=== PATIENT | female | born 1950 | race Caucasian/White ===

== ENCOUNTER 2017-10-13 08:34 | Inpatient (IN) | payer MEDICARE, BC ==
[~2017-10-13] VITALS: Ht 165.1 cm; Wt 114.5 kg
[~2017-10-13 08:34] MED LIST: ASPI-496 PO; ASPI-691 PO; CALC-47 PO; CASCARA SAGRADA PO; CHRO1TAB6 PO; CINN500C2 PO; DOCU100T6 PO; EZET1TAB41 PO; HYDR-3241 PO; HYDR2TAB29 PO; IBUP-1484 PO; IBUP200C8 PO; INUL1TAB PO; LEVO100T5 PO; LORA10TA45 PO; MORP15TA3 PO; MULT-717 PO; NAPR220T77 PO; OMEGA PO; OMEGA Q PLUS PO; OMEGA SLIM PO; OXYC10TA6 PO; PHEN30CA3 PO; POTASSIUM GLUCONATE PO; SPIR100T4 PO; SUPER COLLAGEN PO; SUPER GREENS PO; TEMA15CA PO; TRIA1TAB3 PO; VITA150T PO; [UNRECOGNIZED DRUG - OTHER] PO; [UNRECOGNIZED DRUG - OTHER] PO; [UNRECOGNIZED DRUG - OTHER] PO; [UNRECOGNIZED DRUG - OTHER] PO; gabapentin PO
[2017-10-13] MEDS ORDERED: LACTATED RINGERS 1,000 ML IV SCH ×2 (09:01→09:30)
[2017-10-13] MEDS ORDERED: LIDOCAINE-MPF 1%, 5ML ONE (09:03)
[2017-10-13 09:30] VITALS: BP 160/107
[2017-10-13] MEDS ORDERED: LIDOCAINE-MPF 1%, 2ML INFIL ONE (09:30)
[2017-10-13] MEDS ORDERED: SCOPOLAMINE PATCH, 1.5MG PATCH.TD72 TD ONE (10:13)
[2017-10-13] MEDS ORDERED: MIDAZOLAM 1 MG/ML, 2ML ONE ×2 (10:38→13:53)
[2017-10-13] MEDS ORDERED: FENTANYL PF 250 MCG/5ML ONE (10:38)
[2017-10-13] MEDS ORDERED: PROPOFOL 10 MG/ML, 20ML ONE (11:03)
[2017-10-13] MEDS ORDERED: LABETALOL 5MG/ML, 20ML ONE (11:03)
[2017-10-13] MEDS ORDERED: ONDANSETRON 2MG/ML, 2ML ONE (11:03)
[2017-10-13] MEDS ORDERED: DEXAMETHASONE 4 MG/ML, 1ML ONE (11:03)
[2017-10-13] MEDS ORDERED: CLINDAMYCIN 150 MG/ML, 6ML ONE (11:16)
[2017-10-13] MEDS ORDERED: HYDROmorphone 1 MG/ML, 1ML IV PRN (12:30)
[2017-10-13] MEDS ORDERED: hydrALAzine 20 MG/ML, 1ML IV PRN (12:30)
[2017-10-13] MEDS ORDERED: PROMETHAZINE 25 MG/ML, 1ML IV PRN (12:30)
[2017-10-13] MEDS ORDERED: OXYcodone 5 MG/5 ML ORAL.SOL UDC PO PRN (12:30)
[2017-10-13] MEDS ORDERED: ONDANSETRON ODT 8 MG PO PRN (12:30)
[2017-10-13] MEDS ORDERED: ALBUTEROL SULFATE 2.5 MG/3 ML NPPB PRN (12:30)
[2017-10-13] MEDS ORDERED: MEPERIDINE/PF 25MG/0.5ML IVPush PRN (12:30)
[2017-10-13] MEDS ORDERED: MORPHINE SULFATE 4 MG/ML, 1ML IVPush PRN (12:30)
[2017-10-13] MEDS ORDERED: ACETAMINOPHEN 325 MG TABLET PO PRN (12:30)
[2017-10-13] MEDS ORDERED: LABETALOL 5MG/ML, 20ML IV PRN (12:30)
[2017-10-13] MEDS ORDERED: FENTANYL PF 100 MCG/2ML ONE (13:20)
[2017-10-13] MEDS ORDERED: OXYcodone 5 MG/5 ML ORAL.SOL UDC ONE (13:20)
[2017-10-13] MEDS: FENTANYL PF 100 MCG/2ML IV PRN ×4 (13:25→13:50)
[2017-10-13] MEDS: MIDAZOLAM 1 MG/ML, 2ML IV PRN ×3 (13:55→15:20)
[2017-10-13] MEDS ORDERED: KETOROLAC 30 MG/1 ML ONE (13:56)
[2017-10-13] MEDS ORDERED: KETOROLAC 30 MG/1 ML IV PRN (14:00)
[2017-10-13] MEDS ORDERED: ROPIvacaine/PF 0.2%, 100ML 550 ML in BAG 1 EACH INJ ONE (17:00)
[2017-10-13] MEDS ORDERED: morphine SULFATE 10 MG/ML, 1ML IV PRN (18:00)
[2017-10-13] MEDS ORDERED: ONDANSETRON 2MG/ML, 2ML IV PRN (18:00)
[2017-10-13] MEDS ORDERED: LORATADINE 10 MG TABLET PO PRN (18:00)
[2017-10-13] MEDS: OXYcodone/APAP 5/325MG TABLET PO PRN (18:30)
[2017-10-13 20:00] VITALS: BP 118/61
[2017-10-13] MEDS: SODIUM CHLORIDE FLUSH 10ML SYR IVF SCH (21:00)
[2017-10-13] MEDS: CEFAZOLIN PMX 1GM/50ML 50 ML IVPB SCH (21:41)
[2017-10-14 00:44] VITALS: BP 111/57
[2017-10-14] MEDS: CEFAZOLIN PMX 1GM/50ML 50 ML IVPB SCH ×2 (03:49→11:57)
[2017-10-14 04:46] VITALS: BP 132/77
[2017-10-14] MEDS: ASPIRIN 81 MG TABLET EC PO SCH (05:51)
[2017-10-14] MEDS: LEVOTHYROXINE 100 MCG TABLET PO SCH (05:51)
[2017-10-14 06:49] VITALS: BP 115/70
[2017-10-14] MEDS: SODIUM CHLORIDE FLUSH 10ML SYR IVF SCH ×2 (09:00→19:41)
[2017-10-14] MEDS: SIMVASTATIN 40 MG TABLET PO SCH (09:00)
[2017-10-14] MEDS: PHENTERMINE 30 MG PO SCH (09:00)
[2017-10-14] MEDS: EZETIMIBE 10 MG TABLET PO SCH (09:37)
[2017-10-14] MEDS: MULTIVITS,STRESS FORMULA 1 TABLET PO SCH (09:39)
[2017-10-14] MEDS: OXYcodone/APAP 5/325MG TABLET PO PRN ×3 (09:39→22:24)
[2017-10-14] MEDS: TRIAMTERENE-HCTZ 37.5/25 MG TABLET PO SCH (09:39)
[2017-10-14 15:24] VITALS: BP 124/74
[2017-10-14 19:08] VITALS: BP 149/80
[2017-10-14] MEDS ORDERED: CEPHALEXIN 250 MG CAPSULE ONE ×2 (21:49)
[2017-10-14] MEDS: CEPHALEXIN 500 MG CAPSULE PO SCH (22:20)
[2017-10-14] MEDS: TEMAZEPAM 15 MG CAPSULE PO PRN (22:23)
[2017-10-15 01:09] VITALS: BP 127/64
[2017-10-15] MEDS: OXYcodone/APAP 5/325MG TABLET PO PRN ×6 (02:42→23:26)
[2017-10-15] MEDS: LEVOTHYROXINE 100 MCG TABLET PO SCH (06:03)
[2017-10-15] MEDS: CEPHALEXIN 500 MG CAPSULE PO SCH ×4 (06:03→21:15)
[2017-10-15] MEDS: ASPIRIN 81 MG TABLET EC PO SCH (06:04)
[2017-10-15 06:40] VITALS: BP 147/82
[2017-10-15] MEDS: MULTIVITS,STRESS FORMULA 1 TABLET PO SCH (08:34)
[2017-10-15] MEDS: TRIAMTERENE-HCTZ 37.5/25 MG TABLET PO SCH (08:34)
[2017-10-15] MEDS: PHENTERMINE 30 MG PO SCH (08:35)
[2017-10-15] MEDS: SODIUM CHLORIDE FLUSH 10ML SYR IVF SCH ×2 (09:00→19:22)
[2017-10-15] MEDS: SIMVASTATIN 40 MG TABLET PO SCH (09:00)
[2017-10-15 12:36] VITALS: BP 136/82
[2017-10-15] MEDS: DOCUSATE 100 MG CAPSULE PO PRN (16:42)
[2017-10-15 18:52] VITALS: BP 137/78
[2017-10-15] MEDS: EZETIMIBE 10 MG TABLET PO SCH (21:14)
[2017-10-15] MEDS: TEMAZEPAM 15 MG CAPSULE PO PRN (23:26)
[2017-10-16 01:21] VITALS: BP 152/95
[2017-10-16] MEDS: OXYcodone/APAP 5/325MG TABLET PO PRN ×5 (03:29→20:37)
[2017-10-16] MEDS: LEVOTHYROXINE 100 MCG TABLET PO SCH (05:47)
[2017-10-16] MEDS: ASPIRIN 81 MG TABLET EC PO SCH (05:47)
[2017-10-16] MEDS: CEPHALEXIN 500 MG CAPSULE PO SCH ×3 (05:48→16:00)
[2017-10-16] MEDS: DOCUSATE 100 MG CAPSULE PO PRN ×2 (05:51→11:00)
[2017-10-16 06:37] VITALS: BP 133/83
[2017-10-16] MEDS: PHENTERMINE 30 MG PO SCH (07:29)
[2017-10-16] MEDS: SODIUM CHLORIDE FLUSH 10ML SYR IVF SCH ×2 (07:29→20:23)
[2017-10-16] MEDS: TRIAMTERENE-HCTZ 37.5/25 MG TABLET PO SCH (07:45)
[2017-10-16] MEDS: MULTIVITS,STRESS FORMULA 1 TABLET PO SCH (07:45)
[2017-10-16] MEDS ORDERED: CEPHALEXIN 250 MG CAPSULE ONE ×2 (10:55→16:26)
[2017-10-16 12:57] VITALS: BP 159/88
[2017-10-16 19:41] VITALS: BP 151/86
[2017-10-16] MEDS ORDERED: EZETIMIBE 10 MG TABLET PO SCH (21:00)
[2017-10-16] MEDS ORDERED: SIMVASTATIN 40 MG TABLET PO SCH (21:00)
[2017-10-16] MEDS: TEMAZEPAM 15 MG CAPSULE PO PRN (21:49)
[2017-10-17] MEDS: OXYcodone/APAP 5/325MG TABLET PO PRN ×3 (00:37→09:03)
[2017-10-17 02:34] VITALS: BP 157/100
[2017-10-17] MEDS: ASPIRIN 81 MG TABLET EC PO SCH (04:55)
[2017-10-17] MEDS: LEVOTHYROXINE 100 MCG TABLET PO SCH (04:55)
[2017-10-17] MEDS: DOCUSATE 100 MG CAPSULE PO PRN ×2 (04:55→10:43)
[2017-10-17 06:40] VITALS: BP 138/84
[2017-10-17] MEDS: PHENTERMINE 30 MG PO SCH (09:00)
[2017-10-17] MEDS ORDERED: ONDANSETRON ODT 4 MG PO PRN (09:00)
[2017-10-17] MEDS: MULTIVITS,STRESS FORMULA 1 TABLET PO SCH (09:03)
[2017-10-17] MEDS: TRIAMTERENE-HCTZ 37.5/25 MG TABLET PO SCH (09:03)
[2017-10-17] MEDS: SODIUM CHLORIDE FLUSH 10ML SYR IVF SCH (09:04)
[2017-10-17] MEDS ORDERED: POLYETHYLENE GLYCOL 17 GM PACKET PO ONE (09:30)
[2017-10-17] MEDS ORDERED: OXYcodone/APAP 10/325MG TABLET PO PRN (09:30)
[2017-10-17] MEDS ORDERED: MAGNESIUM CITRATE 300ML ORAL SOL PO PRN (09:30)
[2017-10-17] MEDS ORDERED: OXYC-307 PO (11:05)
[2017-10-17 13:00] VITALS: BP 126/72
== END 2017-10-17 13:34 | DRG 501 ==
LOC: OUT 08:34 → 4NOR 16:50 → OUT 16:56 → 4NOR 16:56
PROVIDERS: ADMIT Orthopaedic Surgery; ATTEND Orthopaedic Surgery
PROC: 0LSP0ZZ Reposition Left Lower Leg Tendon, Open Approach (ICD-10-PCS; 2017-10-13)
PROC: 0SGJ04Z Fusion of Left Tarsal Joint with Internal Fixation Device, Open Approach (ICD-10-PCS; 2017-10-13)
PROC: 0LBP0ZZ Excision of Left Lower Leg Tendon, Open Approach (ICD-10-PCS; 2017-10-13)
PROC: 0LXP0ZZ Transfer Left Lower Leg Tendon, Open Approach (ICD-10-PCS; 2017-10-13)
PROC: 0MQT0ZZ Repair Left Foot Bursa and Ligament, Open Approach (ICD-10-PCS; 2017-10-13)
PROC: 0SGJ0JZ Fusion of Left Tarsal Joint with Synthetic Substitute, Open Approach (ICD-10-PCS; principal; 2017-10-13 10:30)
DX: M21.40 Flat foot [pes planus] (acquired), unspecified foot (principal); R71.0 Precipitous drop in hematocrit; M13.872 Other specified arthritis, left ankle and foot; M21.179 Varus deformity, not elsewhere classified, unspecified ankle; M65.9 Synovitis and tenosynovitis, unspecified; Z88.0 Allergy status to penicillin
CPT/HCPCS: 36415; 76001; 85014; 85018; C1713; G0378; J0690; J1100; J1885; J2250; J2405; J2704; J3010; C1762; J7120

== ENCOUNTER → 2020-01-14 | Outpatient (CLI) | payer BC, MEDICARE ==
[~2020-01-14] MED LIST changes: +CRAMPS PO; +FERR-46 PO; -IBUP-1484 PO; +IBUP-1902 PO; +IC-5 PO; +MORP-29 PO; -MORP15TA3 PO; +OMEP40CA42 PO; +OXYC-307 PO; +Omega XL PO; +PARO30TA3 PO; +RESTFUL LEGS SL; +[UNRECOGNIZED DRUG - OTHER] PO; +[UNRECOGNIZED DRUG - OTHER] PO; +[UNRECOGNIZED DRUG - OTHER] PO; +[UNRECOGNIZED DRUG - OTHER] PO; +fiber choice PO
[2020-01-14 11:39] LABS: BASOPHILS % (AUTO) 1 % (0-1); EOSINOPHILS % (AUTO) 3 % (1-7); LYMPHOCYTES % (AUTO) 25 % (22-44); MD NO; MEAN CORPUSCULAR HEMOGLOBIN 28.7 pg (27.0-34.8); MEAN CORPUSCULAR HGB CONC 33.5 g/dL (32.4-35.8); MEAN PLATELET VOLUME 9.7 fL (7.4-10.4); MONOCYTES % (AUTO) 11 % (2-9); NEUTROPHILS % (AUTO) 60 % (42-75); PLATELET COUNT 288 x10^3/uL (130-400); RED BLOOD COUNT 5.52 x10^6/uL (3.82-5.3)
[2020-01-14 11:46] LABS: INTERNATIONAL NORMALIZED RATIO 1.01 (0.93-1.1); PROTHROMBIN TIME 10.7 Seconds (9.6-11.5)
[2020-01-14 11:49] LABS: ALANINE AMINOTRANSFERASE 25 U/L (12-78); ALBUMIN 4.3 g/dL (3.4-5.0); ANION GAP 9 mmol/L (5-15); CALCIUM 9.3 mg/dL (8.5-10.1); CHLORIDE 103 mmol/L (98-107); CREATININE 0.76 mg/dL (0.55-1.02)
[2020-01-14 11:52] LABS: ALKALINE PHOSPHATASE 123 U/L (45-117); BILIRUBIN,TOTAL 1.1 mg/dL (0.2-1.0); TOTAL PROTEIN 8.1 g/dL (6.4-8.2)
== END | disposition home or self-care (01) ==
LOC: STAR 09:21
PROVIDERS: ATTEND Orthopaedic Surgery
DX: Z01.818 Encounter for other preprocedural examination (principal); M17.12 Unilateral primary osteoarthritis, left knee; R94.31 Abnormal electrocardiogram [ECG] [EKG]; Z79.01 Long term (current) use of anticoagulants
CPT/HCPCS: 36415; 80053; 83036; 85025; 85610; 85730; 87081; 93005

== ENCOUNTER 2020-02-19 06:58 | Day surgery (SDC) | payer BC ==
[~2020-02-19] VITALS: Ht 165.1 cm; Wt 108.9 kg
[~2020-02-19 06:58] MED LIST changes: +EPINEPHRINE 1 MG/ML, 1ML ONE; +KETOROLAC 60 MG/2 ML ONE; +ROPIvacaine/PF 0.5%, 20 ML ONE; +ROPIvacaine/PF 0.5%, 30 ML ONE; +SODIUM CHLORIDE 0.9% 50 ML ONE; +TRANEXAMIC ACID 100 MG/ML, 10ML ONE; +VANCOMYCIN 1,000 MG ONE
[2020-02-19] MEDS ORDERED: BISACODYL 10 MG SUPP PR PRN (07:00)
[2020-02-19] MEDS ORDERED: NS + 20MEQ KCL 1,000 ML IV SCH (07:00)
[2020-02-19] MEDS ORDERED: ACETAMINOPHEN 650 MG/20.3 ML UDC PO PRN (07:00)
[2020-02-19] MEDS ORDERED: DIPHENHYDRAMINE 50 MG CAPSULE PO PRN (07:00)
[2020-02-19] MEDS ORDERED: HYDROcodone/APAP 5/325 TABLET PO PRN (07:00)
[2020-02-19] MEDS ORDERED: CEFAZOLIN PMX 2GM/50ML 50 ML IVPB SCH (07:00)
[2020-02-19] MEDS ORDERED: HYDROmorphone 1 MG/ML, 1ML INJ IV PRN (07:00)
[2020-02-19] MEDS ORDERED: ONDANSETRON 4 MG TABLET PO PRN (07:00)
[2020-02-19] MEDS ORDERED: SENNA/DOCUSATE TABLET PO PRN (07:00)
[2020-02-19] MEDS ORDERED: ZOLPIDEM 5MG TABLET PO PRN (07:00)
[2020-02-19] MEDS ORDERED: MAGNESIUM HYDROXIDE 8%, 30ML UDC PO PRN (07:00)
[2020-02-19] MEDS ORDERED: OXYcodone IR 5MG TABLET PO PRN (07:00)
[2020-02-19] MEDS ORDERED: ONDANSETRON 2MG/ML, 2ML IV PRN (07:00)
[2020-02-19 07:22] VITALS: BP 170/99
[2020-02-19] MEDS ORDERED: CHLORHEXIDINE 15 ML UDC MM ONE (07:30)
[2020-02-19] MEDS ORDERED: LACTATED RINGERS 1,000 ML IV SCH (07:30)
[2020-02-19] MEDS ORDERED: GABAPENTIN 300 MG CAPSULE PO ONE (07:30)
[2020-02-19] MEDS ORDERED: ACETAMINOPHEN 500 MG TABLET PO ONE (07:30)
[2020-02-19] MEDS ORDERED: CHLORHEXIDINE 15 ML UDC ONE (07:32)
[2020-02-19] MEDS ORDERED: ACETAMINOPHEN 500 MG TABLET ONE (07:33)
[2020-02-19] MEDS ORDERED: GABAPENTIN 300 MG CAPSULE ONE (07:34)
[2020-02-19] MEDS ORDERED: FENTANYL PF 250 MCG/5ML ONE (07:46)
[2020-02-19] MEDS ORDERED: MIDAZOLAM 1 MG/ML, 2ML ONE (07:46)
[2020-02-19] MEDS ORDERED: METOPROLOL 1 MG/ML, 5ML ONE (08:40)
[2020-02-19] MEDS ORDERED: PROPOFOL 10 MG/ML, 20ML ONE (08:40)
[2020-02-19] MEDS ORDERED: ROCURONIUM 10 MG/ML,10ML ONE (08:40)
[2020-02-19] MEDS ORDERED: DEXAMETHASONE 4 MG/ML, 1ML ONE (08:40)
[2020-02-19] MEDS ORDERED: CEFAZOLIN 1,000 MG ONE (08:40)
[2020-02-19] MEDS ORDERED: SUCCINYLCHOLINE 20 MG/ML, 10ML ONE (08:40)
[2020-02-19] MEDS ORDERED: ONDANSETRON 2MG/ML, 2ML ONE (08:40)
[2020-02-19] MEDS ORDERED: PAROXETINE HCL 30 MG PO SCH (09:00)
[2020-02-19] MEDS ORDERED: DOCUSATE 100 MG CAPSULE PO SCH (09:00)
[2020-02-19] MEDS ORDERED: LEVOTHYROXINE 100 MCG TABLET PO SCH (09:00)
[2020-02-19] MEDS ORDERED: SUFentanil 50 MCG/ML, 2ML ONE (09:19)
[2020-02-19] MEDS ORDERED: LORazepam 2 MG/ML, 1ML IVPush PRN (10:00)
[2020-02-19] MEDS ORDERED: LABETALOL 5MG/ML, 20ML IV PRN (10:00)
[2020-02-19] MEDS ORDERED: EPHEDRINE 50 MG/ML, 1ML IVPush PRN (10:00)
[2020-02-19] MEDS ORDERED: ACETAMINOPHEN 325 MG TABLET PO PRN (10:00)
[2020-02-19] MEDS ORDERED: ONDANSETRON 2MG/ML, 2ML IVPush PRN (10:00)
[2020-02-19] MEDS ORDERED: HALOPERIDOL 5 MG/ML IV PRN (10:00)
[2020-02-19] MEDS ORDERED: METHOCARBAMOL 1,000 MG in DEXTROSE 5% 100 ML IV PRN (10:00)
[2020-02-19] MEDS ORDERED: MEPERIDINE/PF 25MG/0.5ML IVPush PRN (10:00)
[2020-02-19] MEDS ORDERED: PROMETHAZINE 25 MG/ML, 1ML IVPush PRN (10:00)
[2020-02-19] MEDS ORDERED: hydrALAzine 20 MG/ML, 1ML IV PRN (10:00)
[2020-02-19] MEDS ORDERED: OXYcodone 5 MG/5 ML ORAL.SOL UDC ONE ×2 (10:16→14:42)
[2020-02-19] MEDS ORDERED: FENTANYL PF 100 MCG/2ML ONE (10:16)
[2020-02-19] MEDS: OXYcodone 5 MG/5 ML ORAL.SOL UDC PO PRN ×2 (10:25→14:59)
[2020-02-19] MEDS: FENTANYL PF 100 MCG/2ML IV PRN ×3 (10:28→10:57)
[2020-02-19] MEDS ORDERED: HYDROmorphone 1 MG/ML, 1ML INJ ONE (10:37)
[2020-02-19] MEDS: HYDROmorphone 1 MG/ML, 1ML INJ IVPush PRN ×2 (10:40→12:53)
[2020-02-19] MEDS ORDERED: ACETAMINOPHEN 650 MG/20.3 ML UDC ONE (14:42)
[2020-02-19] MEDS ORDERED: ASPIRIN 81 MG TABLET EC PO SCH (18:00)
[2020-02-20] MEDS ORDERED: DEXAMETHASONE 4 MG/ML, 1ML IVPush SCH (06:00)
== END 2020-02-19 15:25 | disposition home or self-care (01) ==
LOC: OR 06:58 → OUT 15:25
PROVIDERS: ATTEND Orthopaedic Surgery
DX: M17.12 Unilateral primary osteoarthritis, left knee (principal); M25.762 Osteophyte, left knee; M79.7 Fibromyalgia; K21.9 Gastro-esophageal reflux disease without esophagitis; M81.0 Age-related osteoporosis without current pathological fracture; F14.90 Cocaine use, unspecified, uncomplicated; E66.9 Obesity, unspecified; Z68.41 Body mass index [BMI] 40.0-44.9, adult; Z88.0 Allergy status to penicillin; Z88.8 Allergy status to other drugs, medicaments and biological substances; Z88.5 Allergy status to narcotic agent; Z87.891 Personal history of nicotine dependence; Z79.899 Other long term (current) drug therapy; Z72.89 Other problems related to lifestyle; Z82.49 Family history of ischemic heart disease and other diseases of the circulatory system; Z98.890 Other specified postprocedural states
CPT/HCPCS: 27447; 64447; 87635; 97110; 97161; 97165; C1713; C1776; J0171; J0330; J0690; J1100; J1170; J1885; J2250; J2405; J2704; J2795; J2800; J3010; J3370